=== PATIENT | male | born 1950 | race Hispanic/Latino ===

== ENCOUNTER → 2018-03-11 | Outpatient (CLI) | payer OTHER, MEDICARE | END | disposition home or self-care (01) | LOC: SHCH 09:30 | PROVIDERS: ATTEND Internal Medicine Cardiovascular Disease | DX: I35.8 Other nonrheumatic aortic valve disorders (principal) | CPT/HCPCS: 93306 ==

== ENCOUNTER → 2018-05-29 | Outpatient (CLI) | payer OTHER, MEDICARE ==
[~2018-05-29] VITALS: Ht 162.6 cm; Wt 71.7 kg
[~2018-05-29] MED LIST: REGADENOSON 0.4 MG/5 ML PF SYG IVP SCH
== END | disposition home or self-care (01) ==
LOC: SHCH 07:45
PROVIDERS: ATTEND Internal Medicine Cardiovascular Disease
DX: R07.9 Chest pain, unspecified (principal)
CPT/HCPCS: 78452; 93017; 96374; A9500 ×2; J2785

== ENCOUNTER 2018-06-06 05:26 | Observation (INO) | payer OTHER, MEDICARE ==
[2018-06-04 08:45] LABS: APPEARANCE,URINE Clear (CLEAR); BILIRUBIN,URINE Negative (NEGATIVE); COLOR,URINE Yellow (YELLOW); GLUCOSE, URINE (UA) Negative (NEGATIVE); KETONES,URINE Negative (NEGATIVE); LEUKOCYTE ESTERASE ,URINE Trace (NEGATIVE); NITRATE,URINE Negative (NEGATIVE); OCCULT BLOOD,URINE Negative (NEGATIVE); PROTEIN,URINE Negative (NEGATIVE)
[2018-06-04 09:07] LABS: BASOPHILS % (AUTO) 0.8 % (0.0-5.0); EOSINOPHILS % (AUTO) 11.9 % (0.0-8.0); HEMATOCRIT 42.1 % (42-54); LYMPHOCYTES % (AUTO) 25.9 % (21.0-51.0); MEAN CORPUSCULAR HEMOGLOBIN 30.4 pg (27.0-33.0); MEAN CORPUSCULAR HGB CONC 34.1 g/dL (32.0-36.0); MONOCYTES % (AUTO) 6.5 % (3.0-13.0); NEUTROPHILS % (AUTO) 54.9 % (40.0-77.0); PLATELET COUNT (AUTO) 275 K/uL (130-400); RED BLOOD CELL COUNT(AUTO) 4.73 MIL/uL (4.50-6.20); RED CELL DISTRIBUTION WIDTH 13.6 % (11.0-15.5); WHITE BLOOD COUNT (AUTO) 11.9 K/uL (4.8-10.8)
[2018-06-04 09:09] LABS: BACTERIA,URINE Rare /HPF (None Seen); RBC,URINE 0-1 /HPF (0-1); SQUAMOUS EPITHELIAL CELL,UR Rare /HPF (0-2); WBC,URINE 0-1 /HPF (0-1)
[2018-06-04 09:12] LABS: CREATININE 0.9 mg/dL (0.5-1.5); POTASSIUM 4.6 mmol/L (3.5-5.1)
[2018-06-04 09:18] LABS: INR 0.97 (0.85-1.15); PARTIAL THROMBOPLASTIN TIME 25.6 SEC (26.3-35.5); PROTHROMBIN TIME 10.2 SEC (9.6-11.6)
[2018-06-04 09:22] VITALS: BP 103/53
--- NOTE | 2018-06-05 11:07 | NUR ---
ABNORMAL LABS NOTIFIED OSWALDO JACOB OF PT'S WBC 11.9, UA ULEUKEST TRACE, NITRATES NEGATIVE. ORDERS TO REDRAW CBC UPON ARRIVAL DAY OF PROCEDURE.
[2018-06-06] VITALS (18 sets, daily range): BP systolic 100–131; BP diastolic 51–78
[~2018-06-06] VITALS: Ht 162.6 cm; Wt 74.9 kg
[~2018-06-06 05:26] MED LIST changes: +ISOS20TA7 PO; +METO-408 PO; +NITR0.4T50 SL; -REGADENOSON 0.4 MG/5 ML PF SYG IVP SCH; +ROSU5TAB11 PO
[2018-06-06] MEDS ORDERED: SODIUM CHLORIDE 0.9% 1000ML 1,000 ML IV ONE (06:15)
[2018-06-06 06:24] LABS: BASOPHILS % (AUTO) 0.8 % (0.0-5.0); EOSINOPHILS % (AUTO) 12.2 % (0.0-8.0); HEMATOCRIT 38.6 % (42-54); LYMPHOCYTES % (AUTO) 31.8 % (21.0-51.0); MEAN CORPUSCULAR HGB CONC 34.9 g/dL (32.0-36.0); MEAN CORPUSCULAR VOLUME 88.8 fL (79-99); MONOCYTES % (AUTO) 6.4 % (3.0-13.0); NEUTROPHILS % (AUTO) 48.8 % (40.0-77.0); NUCLEATED RED BLOOD CELLS 0.1 % (0.0-0.19); PLATELET COUNT (AUTO) 244 K/uL (130-400); RED BLOOD CELL COUNT(AUTO) 4.35 MIL/uL (4.50-6.20); RED CELL DISTRIBUTION WIDTH 13.1 % (11.0-15.5); WHITE BLOOD COUNT (AUTO) 10.3 K/uL (4.8-10.8)
[2018-06-06] MEDS ORDERED: LIDOCAINE HCL 1% 20 ML VIAL ONE (07:13)
[2018-06-06] MEDS ORDERED: IOHEXOL 350 MG/ML 100ML INFUS..BTL IV ONE (07:13)
[2018-06-06] MEDS ORDERED: HEPARIN SODIUM 1000UNIT/ML 10ML VIAL ONE (07:13)
[2018-06-06] MEDS ORDERED: ROSU10TA27 PO (07:13)
[2018-06-06] MEDS ORDERED: IOHEXOL-350 50ML VIAL IV ONE (07:13)
[2018-06-06] MEDS ORDERED: LIDOCAINE HCL 2% 20ML ONE (07:26)
[2018-06-06] MEDS ORDERED: CLOPIDOGREL BISULFATE 300 MG TAB ONE (08:03)
[2018-06-06] MEDS ORDERED: ASPIRIN 81MG TAB.CHEW ONE (08:03)
[2018-06-06] MEDS ORDERED: NITROGLYCERIN 50 MG/D5% WATER 1 BOT IV PRN (08:15)
[2018-06-06] MEDS ORDERED: ONDANSETRON HCL 4 MG/2 ML VIAL IVP SCH (08:15)
[2018-06-06] MEDS ORDERED: CLOPIDOGREL BISULFATE 300 MG TAB PO SCH (08:15)
[2018-06-06] MEDS ORDERED: TEMAZEPAM 30 MG CAP PO PRN (08:15)
[2018-06-06] MEDS ORDERED: ACETAMINOPHEN-CODEINE 300/30MG TAB PO PRN ×2 (08:15)
[2018-06-06] MEDS ORDERED: ONDANSETRON HCL 4 MG/2 ML VIAL IVP PRN (08:15)
[2018-06-06] MEDS ORDERED: MORPHINE SULFATE 5 MG/ML VIAL IVP SCH ×2 (08:15)
--- NOTE | 2018-06-06 09:15 | NUR ---
PAGED DR. FERRO FOR BENCHMARK CONSULT
--- NOTE | 2018-06-06 15:40 | NUR ---
REPORT GIVEN TO MARGI RN SECOND FLOOR RM 204, PT AAOX3 NO C/O CHEST PAIN NO DISTRESS, 6FR SHEATH INTACT TO RT GROIN , NO ACTIVE BLEEDING OR HEMATOMA TO RT GROIN, THIRD PTT DRAWN AT 1410, CALL LAB FOR RESULTS AT 1515, STILL PENDING RESULTS. PT TRANSFERRED IN A BED NO PERSONAL BELONGINGS OR CLOTHING AT BEDSIDE, NO FAMILY AT BEDSIDE, PT STATES SISTER TOOK PT CLOTHING AND WALLET.
--- NOTE | 2018-06-06 17:20 | NUR ---
RIGHT FEMORAL ARTERIAL LINE REMOVED AT 1655. HELD DIRECT MANUAL PRESSURE FOR 20 MINUTES. STRONG PEDAL PULSE. TOLERATED PROCEDURE WELL. RIGHT GROIN SOFT. APPLIED PRESSURE DRESSING WITH 4X4 GAUZE AND SECURED WITH ELASTOPLAST. WILL CONTINUE TO MONITOR. INSTRUCTED PT ON BEDREST FOR 6 HOURS, VERBALIZED UNDERSTANDING. WILL CONTINUE TO MONITOR. REPORTED OFF TO [facility]IMARY [facility]ARE NURSEBAILEY.
--- NOTE | 2018-06-06 19:25 | NUR ---
RT. GROIN WITH PRESSURE DRESSING IN PLACE. SITE STABLE. PEDAL PULSES STRONG. Addendum: 06/07/18 at 0316 by PEG JONES RN RN BEDREST UNTIL 2300. REMINDED PATIENT NOT TO BEND OR LIFT RT. LEG. PATIENT VERBALIZED UNDERSTANDING.
--- NOTE | 2018-06-06 22:30 | NUR ---
RT. GROIN WITH PRESSURE DRESSING. NO SIGNS OF BLEEDING OR HEMATOMA. PEDAL PULSES STRONG.
--- NOTE | 2018-06-06 23:15 | NUR ---
BEDREST OVER. RT. GROIN STABLE. WILL CONTINUE TO MONITOR.
[2018-06-07 00:05] VITALS: BP 124/60
[2018-06-07 03:43] LABS: HEMATOCRIT 39.3 % (42-54); MEAN CORPUSCULAR HEMOGLOBIN 30.7 pg (27.0-33.0); MEAN CORPUSCULAR VOLUME 87.8 fL (79-99); NUCLEATED RED BLOOD CELLS 0.1 % (0.0-0.19); PLATELET COUNT (AUTO) 241 K/uL (130-400); RED BLOOD CELL COUNT(AUTO) 4.48 MIL/uL (4.50-6.20); RED CELL DISTRIBUTION WIDTH 13.3 % (11.0-15.5); WHITE BLOOD COUNT (AUTO) 9.3 K/uL (4.8-10.8)
[2018-06-07 03:52] LABS: CREATININE 0.9 mg/dL (0.5-1.5); POTASSIUM 3.8 mmol/L (3.5-5.1)
[2018-06-07 04:19] VITALS: BP 112/66
--- NOTE | 2018-06-07 05:35 | NUR ---
RT. GROIN STABLE. PEDAL PULSES STRONG.
[2018-06-07 07:44] VITALS: BP 131/65
[2018-06-07] MEDS: PANTOPRAZOLE SODIUM 40 MG TABLET.DR PO SCH ×2 (07:50→09:06)
--- NOTE | 2018-06-07 08:10 | NUR ---
AM ASSESSMENT PT LAYING IN BED, HOB ELEVATED 30 DEGREES, RESTING. FAMILY @ BEDSIDE. SPA SPEAKING ONLY. A/O X 3. NO SOB. NO DISTRESS NOTED. DENIES CHEST PAIN OR DISCOMFORT. DENIES PALPITATIONS. DENIES INCISIONAL PAIN. TELE: SB 50-SR 60s. DENIES N/V AND/OR DIARRHEA. RT GROIN PRESSURE DSG REMOVED. PUNCTURE SITE SOFT, NON-TENDER. NO BLEEDING, NO HEMATOMA NOTED. (+) BILATERAL PEDAL PULSES. BLE PINK & WARM TO TOUCH. PT ASSISTED OOB. TOLERATED WELL. DENIES DIZZINESS. INSTRUCTED TO CALL FOR ASSISTANCE. CALL SYDNIE W/IN REACH.
[2018-06-07] MEDS ORDERED: CLOPIDOGREL BISULFATE 75 MG TAB PO SCH (09:00)
[2018-06-07] MEDS ORDERED: ASPIRIN 81MG TAB.CHEW PO SCH (09:00)
[2018-06-07 11:47] VITALS: BP 126/67
--- NOTE | 2018-06-07 15:35 | NUR ---
DISCHARGE VERBAL & WRITTEN DISCHARGE INSTRUCTIONS REVIEWED & GIVEN TO PT IN [place]. QUESTIONS ENCOURAGED & CLARIFIED. PROPER CARE & ACTIVITY AFTER LEFT HEART W/STENT PLACEMENT REVIEWED. NEW PRESCRIBED MEDICATION REVIEWED. REINFORCED IMPORTANCE OF TAKING PLAVIX & ASA INDICATED. SATES UNDERSTANDING. PRESCRIPTION GIVEN TO PT, SIGNED COPY PLACED IN CHART. PT ASKED TO F/U W/PC & DR ALVARADO. PT STATES APPT W/DR ALVARADO HAS ALREADY BEEN SCHEDULED. IV DISCONTINUED. TELE RAFI REMOVED. PT & SISTER TO GATHER PERSONAL BELONGINGS. WILL NOTIFY STAFF WHEN READY TO BE TAKEN TO PRIVATE VEHICLE.
--- NOTE | 2018-06-07 16:00 | NUR ---
DISCHARGE PT TAKEN TO PRIVATE VEHICLE VIA WC BY Elisa ABEL PCP, ACCOMPANIED BY SISTER. NO DISTRESS NOTED.
== END 2018-06-07 16:00 | disposition home or self-care (01) ==
LOC: DAH 05:26 → DAHIP 05:27 → DAH 05:27 → 2AH 15:50
PROVIDERS: ADMIT Internal Medicine; ATTEND Internal Medicine
DX: I25.110 Atherosclerotic heart disease of native coronary artery with unstable angina pectoris (principal); E78.5 Hyperlipidemia, unspecified; I10 Essential (primary) hypertension; Z79.899 Other long term (current) drug therapy
CPT/HCPCS: 36415 ×3; 71045; 80048 ×2; 80061; 81001; 85025 ×2; 85027; 85610; 85730 ×4; 93005; 93458; A4606; C1769; C1874; C1887; C1894; C9600; G0378 ×35; J1644 ×2; J3490; J7030; Q9965 ×2; Q9967 ×2

== ENCOUNTER → 2018-10-23 | Outpatient (CLI) | payer OTHER, MEDICARE ==
[~2018-10-23] VITALS: Ht 162.6 cm; Wt 75.7 kg
[~2018-10-23] MED LIST changes: +REGADENOSON 0.4 MG/5 ML PF SYG IVP SCH; +ROSU10TA27 PO; -ROSU5TAB11 PO
== END | disposition home or self-care (01) ==
LOC: SHCH 08:04
PROVIDERS: ATTEND Internal Medicine Cardiovascular Disease
DX: R07.9 Chest pain, unspecified (principal); I25.119 Atherosclerotic heart disease of native coronary artery with unspecified angina pectoris
CPT/HCPCS: 78452; 93017; 96374; A9500 ×2; J2785